=== PATIENT | male | born 1995 | race Caucasian/White ===

== ENCOUNTER 2018-06-14 16:24 | Observation (INO) | payer OTHER ==
[2018-06-14] MEDS ORDERED: ONDANSETRON 4 MG/2 ML VIAL IVP ONE (16:53)
[2018-06-14] MEDS ORDERED: KETOROLAC 30 MG/1 ML SDV IVP ONE (16:53)
[2018-06-14] MEDS ORDERED: NS 1,000 ML IV ONE (16:53)
--- NOTE | 2018-06-14 16:53 | EDPHY ---
H & P Stated Complaint: r sided abd pain n/v Time Seen by Provider: 06/14/18 16:49 - Personal History Current Tetanus Diphtheria and Acellular Pertussis (TDAP): Yes Tetanus Vaccine Date: 2012 - Medical/Surgical History Hx Asthma: No Hx Chronic Respiratory Disease: No Hx Diabetes: No Hx Cardiac Disease: No Hx Renal Disease: No Hx Cirrhosis: No Hx Alcoholism: No Hx HIV/AIDS: No Hx Splenectomy or Spleen Trauma: No Other PMH: L knee surg. - Social History Smoking Status: Light smoker Constitutional: Initial Vital Signs Temperature (C) 36.4 C 06/14/18 16:29 Heart Rate 79 06/14/18 16:29 Respiratory Rate 20 06/14/18 16:29 Blood Pressure 129/89 H 06/14/18 16:29 O2 Sat (%) 99 06/14/18 16:29 O2 Delivery Mode Room Air Allergies/Adverse Reactions: poison oak extract Allergy (Severe, Verified 06/14/18 16:29) Swelling/neck,face,throat Home Medications: Medication Instructions Recorded NK [No Known Home Meds] 06/14/18 Medical Decision Making - Diagnostics Imaging Results: Imaging Impressions Abdomen CT 06/14/18 16:53 Impression: 1. Acute appendicitis with appendix thickening up to 11 mm. 2. No bowel obstruction, drainable abscesses or pneumoperitoneum. Findings and recommendations discussed with Emergency Department physician, West Diane MD at 17:40 hour, 06/14/2018. Final report concurs with initial preliminary interpretation. Imaging: Discussed imaging studies w/ campus aide Radiologist, I viewed and interpreted images myself ED Course/Re-evaluation: CHIEF COMPLAINT: N/V, abdominal pain HISTORY OF PRESENT ILLNESS: The patient is a 23 y/o male complaining of acute onset RLQ abdominal pain with associated nausea and vomiting about 4 hours prior to arrival. He describes the pain developing rapidly this afternoon and associated with "hot and cold flashes" in addition to nausea and vomiting. He denies urinary symptoms, fever, cough, dyspnea, chest pain, recent illness, or recent trauma. He is typically healthy and denies history of cardiac or respiratory disease. No abdominal surgical history. His last PO intake was water earlier this morning. REVIEW OF SYSTEMS: A comprehensive 10 system review of systems is otherwise negative aside from elements mentioned in the history of present illness and medical decision making. PHYSICAL EXAM: HR, BP, O2 Sat, RR. Temp noted General Appearance: Alert, well hydrated, appropriate, and non-toxic appearing. Head: Atraumatic without scalp tenderness or obvious injury Eyes: Pupils equal, round, reactive to light and accommodation, EOMI, no trauma , no injection. Nose: Atraumatic, no rhinorrhea, clear. Throat: Mucus membranes moist. Neck: Supple,non-tender, no lymphadenopathy. Respiratory: No retractions, no distress, no wheezes, and no accessory muscle use. Lungs are clear to auscultation bilaterally. Cardiovascular: Regular rate and rhythm, no murmurs, rubs, or gallops. Good capillary refill all extremities. Gastrointestinal: Abdomen is soft, McBurney's point tenderness, non-distended, no masses, no rebound, no guarding, no peritoneal signs. Musculoskeletal: Normal active ROM of all extremities, atraumatic. Neurological: Alert, appropriate, and interactive. Nonfocal. Skin: No rashes, good turgor, no nodules on palpation. PAST MEDICAL HISTORY: Denies PAST SURGICAL HISTORY: No abdominal surgeries. SOCIAL HISTORY: Returned from [place] this morning. Lives in [place]. Employed. DIAGNOSTICS/PROCEDURES/CRITICAL CARE TIME: Abdominal CT: acute appendicitis. DIFFERENTIAL DIAGNOSIS: The differential diagnosis for the patient's abdominal pain included but was not limited to appendicitis, cholecystitis, hernias, testicular torsion, gastritis, and urinary tract infection. MEDICAL DECISION MAKING: This is a healthy 23 y/o male who presents with a 4-hour history of acute onset RLQ tenderness with associated nausea and vomiting. He has McBurney's point tenderness on exam. I have a high suspicion for acute appendicitis in this patient. Plan for IV, labs, abdominal CT, and symptomatic management as needed. Patient declines pain medication at this time. WBC elevated at 15, consistent with likely appendicitis. 1L IV NS, 4mg IV Zofran, 30mg IV Toradol ordered for symptoms. 1745: CT shows acute appendicitis. Reassessed patient and discussed findings. 1gm IV Cefoxitin ordered. Surgery paged. Consulted with Dr. Leroy, surgeon. He will assess patient in the ED and admit him to the OR. - Data Points Laboratory Results: Laboratory Results 06/14/18 16:50 06/14/18 16:50 06/14/18 06/14/18 06/14/18 17:04 16:50 16:50 WBC 15.20 10^3/uL H 10^3/uL (3.80-9.50) RBC 5.61 10^6/uL 10^6/uL (4.40-6.38) Hgb 17.8 g/dL H g/dL (13.7-17.5) POC Hgb 18.0 gm/dL H gm/dL (13.7-17.5) Hct 50.1 % % (40.0-51.0) POC Hct 53 % H % (40-51) MCV 89.3 fL fL (81.5-99.8) MCH 31.7 pg pg (27.9-34.1) MCHC 35.5 g/dL g/dL (32.4-36.7) RDW 12.9 % % (11.5-15.2) Plt Count 212 10^3/uL 10^3/uL (150-400) MPV 10.4 fL fL (8.7-11.7) Neut % (Auto) 87.1 % H % (39.3-74.2) Lymph % (Auto) 6.8 % L % (15.0-45.0) [place] % (Auto) 5.1 % % (4.5-13.0) Eos % (Auto) 0.4 % L % (0.6-7.6) Baso % (Auto) 0.3 % % (0.3-1.7) Nucleat RBC Rel Count 0.0 % % (0.0-0.2) Absolute Neuts (auto) 13.26 10^3/uL H 10^3/uL (1.70-6.50) Absolute Lymphs (auto) 1.03 10^3/uL 10^3/uL (1.00-3.00) Absolute Monos (auto) 0.77 10^3/uL 10^3/uL (0.30-0.80) Absolute Eos (auto) 0.06 10^3/uL 10^3/uL (0.03-0.40) Absolute Basos (auto) 0.04 10^3/uL 10^3/uL (0.02-0.10) Absolute Nucleated RBC 0.00 10^3/uL 10^3/uL (0-0.01) Immature Gran % 0.3 % % (0.0-1.1) Immature Gran # 0.04 10^3/uL 10^3/uL (0.00-0.10) POC Sodium 140 mEq/L mEq/L (135-145) Sodium 136 mEq/L mEq/L (135-145) POC Potassium 3.3 mEq/L mEq/L (3.3-5.0) Potassium 3.6 mEq/L mEq/L (3.5-5.2) POC Chloride 100 mEq/L mEq/L (97-110) Chloride 101 mEq/L mEq/L (97-110) Carbon Dioxide 24 mEq/l mEq/l (22-31) Anion Gap 11 mEq/L mEq/L (6-14) POC BUN 5 mg/dL L mg/dL (7-23) BUN 7 mg/dL mg/dL (7-23) Creatinine 0.9 mg/dL mg/dL (0.7-1.3) POC Creatinine 0.9 mg/dL mg/dL (0.7-1.3) Estimated GFR > 60 Glucose 134 mg/dL H mg/dL (70-100) POC Glucose 136 mg/dL H mg/dL (70-100) Calcium 9.9 mg/dL mg/dL (8.5-10.4) Total Bilirubin 2.4 mg/dL H mg/dL (0.1-1.4) Conjugated Bilirubin 0.6 mg/dL H mg/dL (0.0-0.5) Unconjugated Bilirubin 1.8 mg/dL H mg/dL (0.0-1.1) AST 24 IU/L IU/L (17-59) ALT 30 IU/L IU/L (21-72) Alkaline Phosphatase 92 IU/L IU/L (38-126) Total Protein 7.5 g/dL g/dL (6.3-8.2) Albumin 4.8 g/dL g/dL (3.5-5.0) Lipase 128 IU/L IU/L (23-300) Medications Given: Discontinued Medications Sodium Chloride (Ns) 1,000 mls @ 0 mls/hr IV EDNOW ONE; Wide Open PRN Reason: Protocol Stop: 06/14/18 16:54 Last Admin: 01/21/19 16:53 Dose: 1,000 mls Ketorolac Tromethamine (Toradol) 30 mg IVP EDNOW ONE Stop: 06/14/18 16:54 Last Admin: 06/14/18 16:57 Dose: 30 mg Ondansetron HCl (Zofran) 4 mg IVP EDNOW ONE Stop: 06/14/18 16:54 Last Admin: 06/14/18 16:57 Dose: 4 mg Point of Care Test Results: Chemistry 06/14/18 17:04 POC Sodium 140 mEq/L mEq/L (135-145) POC Potassium 3.3 mEq/L mEq/L (3.3-5.0) POC Chloride 100 mEq/L mEq/L (97-110) POC BUN 5 mg/dL L mg/dL (7-23) POC Creatinine 0.9 mg/dL mg/dL (0.7-1.3) POC Glucose 136 mg/dL H mg/dL (70-100) ISTAT H&H 06/14/18 17:04 POC Hgb 18.0 gm/dL H gm/dL (13.7-17.5) POC Hct 53 % H % (40-51) Departure - Departure Disposition: [facility] Inpatient Acute Clinical Impression: Acute appendicitis Qualifiers: Acute appendicitis type: with localized peritonitis Appendicitis gangrene presence: without gangrene Appendicitis perforation presence: without perforation Appendicitis abscess presence: without abscess Qualified Code(s): K35.30 - Acute appendicitis with localized peritonitis, without perforation or gangrene Condition: Fair Report Scribed for: West Diane Report Scribed by: Mackenzie Montemayor Date of Report: 06/14/18 Time of Report: 17:46
[2018-06-14 17:00] LABS: PLATELET COUNT 212 10^3/uL (150-400)
[2018-06-14] MEDS ORDERED: IOPAMIDOL (ISOVUE 370) 100 ML BTL IV ONE (17:17)
[2018-06-14] MEDS ORDERED: cefOXitin SODIUM 1 GM in NS 50 ML IV ONE (17:44)
[2018-06-14] MEDS ORDERED: MIDAZOLAM 2 MG/2 ML VIAL ONE (18:56)
[2018-06-14] MEDS ORDERED: MIDAZOLAM 2 MG/2 ML VIAL IVP ONE (18:58)
--- NOTE | 2018-06-14 19:01 | PDANEPAE ---
ANE History of Present Illness Laparoscopic Appendectomy ANE Past Medical History - Cardiovascular History Hx Hypertension: No Hx Arrhythmias: No Hx Chest Pain: No Hx Coronary Artery / Peripheral Vascular Disease: No Hx CHF / Valvular Disease: No Hx Palpitations: No - Pulmonary History Hx COPD: No Hx Asthma/Reactive Airway Disease: No Hx Recent Upper Respiratory Infection: No Hx Oxygen in Use at Home: No Hx Sleep Apnea: No - Endocrine History Hx Diabetes: No ANE Review of Systems Review of Systems: - Exercise capacity METS (RN): 4 METS ANE Patient History - Allergies Allergies/Adverse Reactions: poison oak extract Allergy (Severe, Verified 06/14/18 16:29) Swelling/neck,face,throat - Home Medications Home Medications: NK [No Known Home Meds] 06/14/18 [Last Taken Unknown] - NPO status NPO Status: no food or drink >8 hours NPO Since - Liquids (Date): 06/14/18 NPO Since - Liquids (Time): 12:00 NPO Since - Solids (Date): 06/14/18 NPO Since - Solids (Time): 09:00 - Anes Hx Anes Hx: no prior problems - Smoking Hx Smoking Status: Light smoker Marijuana use: Yes - Alcohol Use Alcohol Use: Heavy (3 to 7) ANE Labs/Vital Signs - Labs Result Diagrams: 06/14/18 16:50 06/14/18 16:50 - Vital Signs Blood Pressure: 118/85 Heart Rate: 75 Respiratory Rate: 16 O2 Sat (%): 96 Height: 185.42 cm Weight: 68.039 kg ANE Physical Exam - Airway Neck exam: FROM Mallampati Score: Class 1 Mouth exam: normal dental/mouth exam, poor dentition - Pulmonary Pulmonary: no respiratory distress, no rales or rhonchi - Cardiovascular Cardiovascular: regular rate and rhythym, no murmur, rub, or gallop - ASA Status ASA Status: II, E ANE Anesthesia Plan Anesthesia Plan: general endotracheal anesthesia
[2018-06-14] MEDS ORDERED: fentaNYL 250 MCG/5 ML INJ ONE (19:10)
[2018-06-14] MEDS ORDERED: PROPOFOL/EMULSION 500 MG/50 ML BOTTLE IV ONE ×2 (19:10→19:29)
[2018-06-14] MEDS ORDERED: ONDANSETRON 4 MG/2 ML VIAL ONE (19:55)
[2018-06-14] MEDS ORDERED: ROCURONIUM 50 MG/5 ML VIAL ONE (19:55)
[2018-06-14] MEDS ORDERED: fentaNYL 100 MCG/2 ML INJ ONE (20:00)
[2018-06-14] MEDS ORDERED: LR 1,000 ML IV ONE (20:00)
[2018-06-14] MEDS ORDERED: NEOSTIGMINE METHYLSULFATE 5 MG/5 ML SYR ONE (20:01)
[2018-06-14] MEDS ORDERED: GLYCOPYRROLATE 0.2 MG/1 ML VIAL ONE ×3 (20:02)
[2018-06-14] MEDS ORDERED: ONDANSETRON 4 MG/2 ML VIAL IVP PRN ×2 (20:03→20:19)
[2018-06-14] MEDS ORDERED: D5W 1/2 NS W/ 20 KCl/L 1,000 ML IV SCH (20:15)
[2018-06-14] MEDS ORDERED: NALOXONE HCL 0.4 MG/ML INJ IVP PRN (20:19)
[2018-06-14] MEDS ORDERED: ALBUTEROL 3 ML DEYVIAL IH PRN (20:19)
[2018-06-14] MEDS ORDERED: fentaNYL 100 MCG/2 ML INJ IVP PRN (20:19)
[2018-06-14] MEDS ORDERED: PROMETHAZINE HCL 25 MG/ML INJ IVP PRN (20:19)
[2018-06-14] MEDS ORDERED: HYDROCODONE/APAP 5/325 TAB PO PRN (20:19)
[2018-06-14] MEDS ORDERED: HYDROmorphONE/DILAUDID 2 MG/ML INJ ONE (20:25)
[2018-06-14] MEDS: HYDROmorphONE/DILAUDID 2 MG/ML INJ IVP PRN ×2 (20:28→20:48)
[2018-06-14] MEDS ORDERED: HYDROCODONE/APAP 5/325 TAB ONE (20:38)
--- NOTE | 2018-06-14 20:40 | PDGENHP ---
History and Physical - Chief Complaint abdominal pain - History of Present Illness otherwise healthy 23yo M presents with acute onset abdominal pain. Started out [facility]ilson-umbilical. Has now relocated to [facility]. Patient has been progressive throughout the day, describes as sharp, non-radiating. Asocaited with nausea and vomiting, did have nausea with vomiting. History Information - Allergies/Home Medication List Allergies/Adverse Reactions: poison oak extract Allergy (Severe, Verified 06/14/18 16:29) Swelling/neck,face,throat Home Medications: NK [No Known Home Meds] 06/14/18 [Last Taken Unknown] I have personally reviewed and updated: family history, medical history, social history, surgical history - Past Medical History no pertinent PMH - Surgical History Additional surgical history: knee scope - Family History Positive for: non-pertinent - Social History Smoking Status: Light smoker Alcohol Use: Heavy (3 to 7) Additional social history: works in [employer] industry, endorses [employer] and [employer] Review of Systems Review of Systems: ROS: 10pt was reviewed & negative except for what was stated in HPI & below Physical Exam Physical Exam: Temp Pulse Resp BP Pulse Ox 36.7 C 75 16 115/77 94 06/14/18 20:30 06/14/18 19:01 06/14/18 20:30 06/14/18 20:30 06/14/18 20:30 Constitutional: no apparent distress, appears nourished, not in pain Eyes: PERRL, anicteric sclera, EOMI Ears, Nose, Mouth, Throat: moist mucous membranes, hearing normal, ears appear normal, no oral mucosal ulcers Cardiovascular: regular rate and rhythym, no murmur, rub, or gallop, No edema Respiratory: no respiratory distress, no rales or rhonchi, clear to auscultation Gastrointestinal: normoactive bowel sounds, other (TTP RLQ c rebound ) Genitourinary: no bladder fullness, no bladder tenderness Skin: warm, normal color, no rashes or abrasions, no fluctuance, no induration, No mottled Musculoskeletal: full muscle strength, no muscle tenderness, normal joint ROM, no joint effusions Psychiatric: interacting appropriately, not anxious, not encephalopathic, thought process linear Lymph, Heme, Immunologic: no cervical LAD, no supraclavicular LAD Lab Data & Imaging Review 06/14/18 16:50 06/14/18 16:50 WBC 15.20 10^3/uL (3.80-9.50) H 06/14/18 16:50 RBC 5.61 10^6/uL (4.40-6.38) 06/14/18 16:50 Hgb 17.8 g/dL (13.7-17.5) H 06/14/18 16:50 POC Hgb 18.0 gm/dL (13.7-17.5) H 06/14/18 17:04 Hct 50.1 % (40.0-51.0) 06/14/18 16:50 POC Hct 53 % (40-51) H 06/14/18 17:04 MCV 89.3 fL (81.5-99.8) 06/14/18 16:50 MCH 31.7 pg (27.9-34.1) 06/14/18 16:50 MCHC 35.5 g/dL (32.4-36.7) 06/14/18 16:50 RDW 12.9 % (11.5-15.2) 06/14/18 16:50 Plt Count 212 10^3/uL (150-400) 06/14/18 16:50 MPV 10.4 fL (8.7-11.7) 06/14/18 16:50 Neut % (Auto) 87.1 % (39.3-74.2) H 06/14/18 16:50 Lymph % (Auto) 6.8 % (15.0-45.0) L 06/14/18 16:50 [place] % (Auto) 5.1 % (4.5-13.0) 06/14/18 16:50 Eos % (Auto) 0.4 % (0.6-7.6) L 06/14/18 16:50 Baso % (Auto) 0.3 % (0.3-1.7) 06/14/18 16:50 Nucleat RBC Rel Count 0.0 % (0.0-0.2) 06/14/18 16:50 Absolute Neuts (auto) 13.26 10^3/uL (1.70-6.50) H 06/14/18 16:50 Absolute Lymphs (auto) 1.03 10^3/uL (1.00-3.00) 06/14/18 16:50 Absolute Monos (auto) 0.77 10^3/uL (0.30-0.80) 06/14/18 16:50 Absolute Eos (auto) 0.06 10^3/uL (0.03-0.40) 06/14/18 16:50 Absolute Basos (auto) 0.04 10^3/uL (0.02-0.10) 06/14/18 16:50 Absolute Nucleated RBC 0.00 10^3/uL (0-0.01) 06/14/18 16:50 Immature Gran % 0.3 % (0.0-1.1) 06/14/18 16:50 Immature Gran # 0.04 10^3/uL (0.00-0.10) 06/14/18 16:50 POC Sodium 140 mEq/L (135-145) 06/14/18 17:04 Sodium 136 mEq/L (135-145) 06/14/18 16:50 POC Potassium 3.3 mEq/L (3.3-5.0) 06/14/18 17:04 Potassium 3.6 mEq/L (3.5-5.2) 06/14/18 16:50 POC Chloride 100 mEq/L (97-110) 06/14/18 17:04 Chloride 101 mEq/L (97-110) 06/14/18 16:50 Carbon Dioxide 24 mEq/l (22-31) 06/14/18 16:50 Anion Gap 11 mEq/L (6-14) 06/14/18 16:50 POC BUN 5 mg/dL (7-23) L 06/14/18 17:04 BUN 7 mg/dL (7-23) 06/14/18 16:50 Creatinine 0.9 mg/dL (0.7-1.3) 06/14/18 16:50 POC Creatinine 0.9 mg/dL (0.7-1.3) 06/14/18 17:04 Estimated GFR > 60 06/14/18 16:50 Glucose 134 mg/dL (70-100) H 06/14/18 16:50 POC Glucose 136 mg/dL (70-100) H 06/14/18 17:04 Calcium 9.9 mg/dL (8.5-10.4) 06/14/18 16:50 Total Bilirubin 2.4 mg/dL (0.1-1.4) H 06/14/18 16:50 Conjugated Bilirubin 0.6 mg/dL (0.0-0.5) H 06/14/18 16:50 Unconjugated Bilirubin 1.8 mg/dL (0.0-1.1) H 06/14/18 16:50 AST 24 IU/L (17-59) 06/14/18 16:50 ALT 30 IU/L (21-72) 06/14/18 16:50 Alkaline Phosphatase 92 IU/L (38-126) 06/14/18 16:50 Total Protein 7.5 g/dL (6.3-8.2) 06/14/18 16:50 Albumin 4.8 g/dL (3.5-5.0) 06/14/18 16:50 Lipase 128 IU/L (23-300) 06/14/18 16:50 Visualized and Interpreted imaging results: Yes Interpretation: CT: acute appendicitis Assessment & Plan Assessment: Acute appendicitis (Acute) Plan: 23yo M c acute appendicitis - IV abx in ED - to OR for lap appy
--- NOTE | 2018-06-14 20:41 | POSTOPPROG ---
Post Op Note Date of Operation: 06/14/18 Surgeon: Yann Leroy Anesthesiologist: Nawaf Anesthesia: GET(General Endotracheal) Pre-op Diagnosis: appendicitis Post-op Diagnosis: same Procedure: lap appy Findings: acute, non perforated Inf/Abcess present in the surg proc area at time of surgery?: No EBL: Minimal Specimen(s): appendix
--- NOTE | 2018-06-14 21:08 | POSTANESTH ---
Post Anesthetic Evaluation Cardiovascular Status: Normal, Stable Respiratory Status: Normal, Stable Level of Consciousness/Mental Status: Can Participate in Eval Pain Control: Adequate, Prn Tx Ordered Nausea/Vomiting Control: Adequate, Prn Tx Ordered Complications Possibly Related to Anesthesia: None Noted
[2018-06-14] MEDS: ACETAMINOPHEN 325 MG TAB PO PRN (21:15)
--- NOTE | 2018-06-14 21:18 | GOP ---
DATE OF OPERATION: 06/14/2018 SURGEON: Yann Leroy MD ELECTRIC BLANKET WIRER: None. ANESTHESIA: General endotracheal. ANESTHESIOLOGIST: Patricia Mccracken MD. PREOPERATIVE DIAGNOSIS: Acute appendicitis. POSTOPERATIVE DIAGNOSIS: Acute appendicitis. PROCEDURE PERFORMED: Laparoscopic appendectomy. FINDINGS: Acute indurated non perforated appendicitis. SPECIMENS: Appendix. ESTIMATED BLOOD LOSS: 5 cc. DESCRIPTION OF PROCEDURE: The patient was greeted in the preoperative suite. Once again, risks, martell efits, and alternatives were discussed. Consent was signed. He was then brought back to the operati ve suite, placed on the OR table in a supine position. After all anesthesia was achieved including S CDs were on and functioning, a [employer] time-out was performed. After successful in duction of general anesthesia, the patient's abdomen was prepped and draped in typical sterile fashio n. I commenced the procedure by making an infraumbilical cutdown through which the Veress needle was passed. I achieved pneumoperitoneum to 15 mmHg, which was well tolerated by the patient, through wh ich I inserted a 12 mm Visiport. Once successfully in the abdomen, I placed 2 additional 5 mm trocar s, one in the suprapubic, one in the left lower quadrant, both under direct visualization. I identif ied the appendix by tracing the taeniae inferiorly. It was indurated but not acutely perforated, and I commenced the procedure by creating a window at the base of the appendix and successfully amputate d the appendix at the cecal base using an Endo-PETAR 45 mm white load. In the same fashion, I took the mesoappendix. The specimen was then placed in an EndoCatch bag and removed. My staple lines were t hen inspected and noted to be intact and hemostatic. I then irrigated the right lower quadrant pelvi s with a liter of sterile saline, noting clear effluent in the suction canister. The pneumoperitoneu m was then evacuated. I removed my ports. My infraumbilical port site was closed with an 0 Vicryl s titch, noting excellent fascial reapproximation. The skin was then closed with Monocryl over which D ermabond was placed. The patient was then extubated in the operative suite and taken to the PACU in satisfactory condition. DRAINS: None. COUNTS: All counts were reported as correct x2. /[id number]/MODL
[2018-06-14] MEDS: IBUPROFEN 600 MG TAB PO SCH (22:12)
[2018-06-15] MEDS: HYDROmorphONE/DILAUDID 1 MG/ML INJ IVP PRN ×2 (00:14→08:22)
[2018-06-15] MEDS: oxyCODONE IR 5 MG TAB PO PRN ×2 (00:44→16:06)
[2018-06-15] MEDS: IBUPROFEN 600 MG TAB PO SCH ×2 (06:11→14:09)
[2018-06-15 07:29] VITALS: BP 128/84
[2018-06-15] MEDS: ACETAMINOPHEN 325 MG TAB PO PRN (14:09)
== END 2018-06-15 17:15 | disposition home or self-care (01) ==
LOC: FOB 21:00
PROVIDERS: ADMIT Surgery; ATTEND Surgery
PROC: 0DTJ4ZZ Resection of Appendix, Percutaneous Endoscopic Approach (ICD-10-PCS; principal; 2018-06-14 19:30)
DX: K35.80 Unspecified acute appendicitis (principal); Z23 Encounter for immunization; E86.0 Dehydration; Z72.89 Other problems related to lifestyle
CPT/HCPCS: 44970; 74177; 90471; G0378; 82435-PO; 82565-PO; 82947-PO; 84132-PO; 84295-PO; 84520-PO; 85014-ER; 96374; G0008; J0694; J1170; J1885; J2250; J2405; J2704; J2710; J3010; Q9967